=== PATIENT | male | born 1945 | race Caucasian/White ===

== ENCOUNTER 2023-02-05 11:28 | Outpatient (CLI) | payer MEDICARE, SELFPAY ==
--- NOTE | ~2023-02-05 | XR_ITS ---
EXAMINATION: XR cystogram DATE: 02/05/2023 12:10 INDICATION: Bladder cancer status post resection. TECHNIQUE: Water-soluble contrast was gravity-infused through the patient's Kimball catheter. Multiple fluoroscopic images were obtained. Fluoroscopy exposure time was 0.2 minutes. The total number of carlos ges was 5. COMPARISON: None. FINDINGS: There are surgical clips in the pelvis. The bladder is small in volume. There is a small vo lume of extraluminal contrast superior and right superior to the bladder. There is reflux into the ri ght ureter. IMPRESSION: 1. Small volume of extraluminal contrast superior and right superior to the bladder. Reviewed, dictated and finalized at location A. IMPRESSION: 1. Small volume of extraluminal contrast superior and right superior to the bunny dder.
== END 2023-02-05 11:29 | disposition home or self-care (01) ==
PROVIDERS: Visit Provider Urology
DX: C67.9 Malignant neoplasm of bladder, unspecified (principal)
CPT/HCPCS: 51600; 74430; Q9967